=== PATIENT | female | born 1950 | race Caucasian/White ===

== ENCOUNTER 2017-12-12 06:17 | Day surgery (SDC) | payer MEDICARE, MEDICAID ==
[2017-12-08 12:49] LABS: BASOPHILS # (AUTO) 0.1 X10'3 (0-0.2); BASOPHILS % (AUTO) 0.6 % (0-1); EOSINOPHILS # (AUTO) 0.3 X10'3 (0-0.9); EOSINOPHILS % (AUTO) 2.6 % (0-6); LYMPHOCYTES # (AUTO) 2.3 X10'3 (1.1-4.8); LYMPHOCYTES % (AUTO) 21.1 % (21-51); MEAN CORPUSCULAR HEMOGLOBIN 29.5 PG (27.0-31.0); MEAN CORPUSCULAR HGB CONC 33.5 % (33.0-36.5); MEAN PLATELET VOLUME 8.5 FL (7.4-10.4); MONOCYTES # (AUTO) 0.9 X10'3 (0-0.9); MONOCYTES % (AUTO) 8.8 % (2-12); NEUTROPHILS # (AUTO) 7.2 X10'3 (1.8-7.7); NEUTROPHILS % (AUTO) 66.9 % (42-75); PRE OP HEMATOCRIT 43.1 % (35.0-45.0); PRE OP HEMOGLOBIN 14.4 g/dL (12.0-16.0); PRE OP PLATELET COUNT 232 X10'3 (140-440); RED CELL DISTRIBUTION WIDTH 14.6 % (11.5-14.5)
[2017-12-08 12:53] LABS: CLARITY,URINE Clear (Clear); COLOR,URINE Yellow (Yellow); GLUCOSE, URINE Negative (Neg); KETONES,URINE Negative (Neg); LEUKOCYTE ESTERASE ,URINE Trace (Neg); NITRITES, URINE Negative (Neg); OCCULT BLOOD,URINE Negative (Neg); PROTEIN,URINE Negative (Neg); UROBILINOGEN,URINE 0.2 E.U/dL (0.2-1.0)
[2017-12-08 13:07] LABS: UA COLLECTION TYPE NON-SPECIFIED
[2017-12-08 13:08] LABS: BACTERIA,URINE FEW /HPF (Neg); MUCUS STRANDS NONE SEEN /LPF (Neg); RBC,URINE 0-2 /HPF (0-2); SQUAMOUS EPITHELIAL CELL,UR FEW /LPF (FEW); WBC,URINE 0-4 /HPF (0-4)
[2017-12-08 13:11] LABS: ALBUMIN 4.1 G/DL (3.4-5.0); ALBUMIN/GLOBULIN RATIO 1.2 (1.1-1.5); ALKALINE PHOSPHATASE 96 IU/L (46-116); BLOOD UREA NITROGEN 29 MG/DL (7-18); BUN/CREATININE RATIO 48.3 (6.6-38.0); CALCIUM 9.2 MG/DL (8.5-10.1); CHLORIDE 104 MMOL/L (99-107); PRE OP ALT 27 U/L (30-65); PRE OP ANION GAP 8 (8-16); PRE OP AST 18 U/L (10-37); PRE OP BILIRUB, TOTAL 0.5 MG/DL (0.0-1.0); PRE OP GLUCOSE 78 MG/DL (70-104); PRE OP POTASSIUM 4.4 MMOL/L (3.4-5.1); PRE OP SODIUM 140 MMOL/L (135-145); TOTAL CARBON DIOXIDE 27.6 MMOL/L (24-32); TOTAL PROTEIN 7.5 G/DL (6.4-8.2); eGFR > 90 ML/MIN
[2017-12-12] VITALS (10 sets, daily range): BP systolic 161–193; BP diastolic 101–120
[~2017-12-12] VITALS: Ht 149.9 cm; Wt 53.1 kg
[~2017-12-12 06:17] MED LIST: ALBU8.5H8 IH; FLUT1BLS3 INH; HYDR-3686 PO; IBUP-1984 PO; LISI1TAB9 PO; MONT10TA24 PO; PRED5TAB PO; TIOT18CA3 INH; albuterol 2.5 MG/3 ML nebule NEB ONE; clindamycin 600mg/D5W 50ml 50 ML IV ONE; famotidine 20mg tablet PO ONE; ringers solution, lacted 1,000 ML IV SCH
[2017-12-12] MEDS ORDERED: LIDOcaine 1% 30ml vial 0 ML ONE (06:44)
[2017-12-12] MEDS ORDERED: BUPIVAcaine/PF 2.5 mg/ml (0.25%) 30ml vial ONE (06:44)
[2017-12-12] MEDS ORDERED: sevoflurane 250ml liquid IH ONE (08:20)
[2017-12-12] MEDS ORDERED: fentaNYL/PF 50MCG/1 ML 2ML syringe ONE (08:28)
[2017-12-12] MEDS ORDERED: midazolam 2 mg/2 ml injection ONE (08:29)
[2017-12-12] MEDS ORDERED: propofol inj 20 ML IV ONE (08:29)
[2017-12-12] MEDS ORDERED: LIDOcaine 2% (20mg/ml) 5ml vial ONE (08:29)
[2017-12-12] MEDS ORDERED: dexamethasone sod phosphate 4mg/ml inj. ONE (08:30)
[2017-12-12] MEDS ORDERED: ringers solution, lacted 1,000 ML IV SCH (09:04)
[2017-12-12] MEDS ORDERED: meperidine/PF 25mg/ml syringe IV PRN ×2 (09:05)
[2017-12-12] MEDS ORDERED: ondansetron/PF 4mg/2ml inj IV PRN (09:05)
[2017-12-12] MEDS ORDERED: morphine 2 MG/ML inj. syringe IV PRN ×2 (09:05)
[2017-12-12] MEDS ORDERED: proCHLORperazine 10 MG/2 ml inj IV PRN (09:05)
[2017-12-12] MEDS ORDERED: ketorolac trometh. 30mg/ml inj. ONE (09:22)
[2017-12-12] MEDS: meperidine/PF 25mg/ml syringe IV PRN ×2 (09:56→10:02)
[2017-12-12] MEDS: enalaprilat dihydrate 2.5mg/2ml vial IV PRN ×2 (10:13→10:31)
[2017-12-12] MEDS ORDERED: traMADol 50MG tablet PO ONE (10:35)
== END 2017-12-12 11:15 | disposition home or self-care (01) ==
LOC: PAS 06:17
PROVIDERS: ATTEND Surgery
DX: K43.2 Incisional hernia without obstruction or gangrene (principal); M19.90 Unspecified osteoarthritis, unspecified site; F32.9 Major depressive disorder, single episode, unspecified; J44.9 Chronic obstructive pulmonary disease, unspecified; I10 Essential (primary) hypertension; J45.909 Unspecified asthma, uncomplicated; Z96.612 Presence of left artificial shoulder joint; Z89.021 Acquired absence of right finger(s); Z88.5 Allergy status to narcotic agent; Z88.0 Allergy status to penicillin; Z88.6 Allergy status to analgesic agent; Z88.1 Allergy status to other antibiotic agents; Z88.8 Allergy status to other drugs, medicaments and biological substances; Z79.1 Long term (current) use of non-steroidal anti-inflammatories (NSAID); Z79.899 Other long term (current) drug therapy; Z87.891 Personal history of nicotine dependence
CPT/HCPCS: 36415; 49560; 49568; 71046; 80053; 81001; 85025; 87088; 93005; 94640; 94760; A6449; C1781; J1100; J1885; J2001; J2175; J2250; J2704; J3010; J3490; J7120; 88302; A7000

== ENCOUNTER 2018-02-24 05:07 | Inpatient (IN) | payer MEDICARE, MEDICAID ==
[~2018-02-24] VITALS: Ht 149.9 cm; Wt 59.0 kg
[2018-02-24] VITALS (16 sets, daily range): BP systolic 116–146; BP diastolic 73–93
[~2018-02-24 05:07] MED LIST changes: -albuterol 2.5 MG/3 ML nebule NEB ONE; -clindamycin 600mg/D5W 50ml 50 ML IV ONE; -famotidine 20mg tablet PO ONE; -ringers solution, lacted 1,000 ML IV SCH
[2018-02-24] MEDS ORDERED: normal saline 1000ml 1,000 ML IV ONE ×2 (05:09→06:55)
[2018-02-24] MEDS ORDERED: ondansetron/PF 4mg/2ml inj IV ONE (05:10)
[2018-02-24] MEDS ORDERED: albuterol 2.5 MG/3 ML nebule NEB ONE (05:10)
[2018-02-24] MEDS ORDERED: methylPREDNISolone sod succ 125mg/2ml vial IV ONE (05:15)
[2018-02-24 05:50] LABS: ABG BASE EXCESS 6.5 mmol/L (-2.0-3.0); ABG HCO3 31.1 mmol/L (22.0-26.0); ABG OXYGEN SATURATION 85.5 % (95-98); ABG PCO2 (T) 43.3 mmHg (32.0-45.0); ABG PH (T) 7.472 (7.350-7.450); ABG PO2 (T) 51.8 mmHg (83-108); FCOHb 1.1 % (0.5-1.5); FLOW 4 L/min; FMetHb 0.1 % (0.3-1.12); FO2Hb 84.5 % (94-100); PATIENT TEMPERATURE 36.6; TOTAL HEMOGLOBIN 15.2 G/dl (12.0-16.0)
[2018-02-24 06:04] LABS: BASOPHILS % (AUTO) 0.1 % (0-1); EOSINOPHILS % (AUTO) 0.2 % (0-6); HEMATOCRIT 44.9 % (35.0-45.0); HEMOGLOBIN 15.4 g/dl (12.0-16.0); LYMPHOCYTES # (AUTO) 0.7 X10'3 (1.1-4.8); LYMPHOCYTES % (AUTO) 8.5 % (21-51); MEAN CORPUSCULAR HEMOGLOBIN 29.3 PG (27.0-31.0); MEAN CORPUSCULAR HGB CONC 34.3 % (33.0-36.5); MEAN CORPUSCULAR VOLUME 85.6 FL (78-98); MEAN PLATELET VOLUME 8.3 FL (7.4-10.4); MONOCYTES # (AUTO) 0.1 X10'3 (0-0.9); MONOCYTES % (AUTO) 1.4 % (2-12); NEUTROPHILS # (AUTO) 7.4 X10'3 (1.8-7.7); NEUTROPHILS % (AUTO) 89.8 % (42-75); PLATELET COUNT 291 X10'3 (140-440); RED BLOOD COUNT 5.25 X10'6 (4.20-5.60); RED CELL DISTRIBUTION WIDTH 13.2 % (11.5-14.5); WHITE BLOOD COUNT 8.2 X10'3 (4.5-11.0)
[2018-02-24 06:22] LABS: INR 1.1 INR; PARTIAL THROMBOPLASTIN TIME 21 SECONDS (22-32); PROTHROMBIN TIME 11.2 SECONDS (9.0-12.0)
[2018-02-24] MEDS ORDERED: cefepime 1GM/NS ADD-VANTAGE 100 ML IV ONE (06:30)
[2018-02-24 06:37] LABS: ALANINE AMINOTRANSFERASE 18 U/L (12-78); ALBUMIN 3.6 G/DL (3.4-5.0); ALKALINE PHOSPHATASE 76 IU/L (46-116); ANION GAP 17 (8-16); ASPARTATE AMINO TRANSFERASE 20 U/L (10-37); BILIRUBIN,TOTAL 1.1 MG/DL (0.1-1.0); BLOOD UREA NITROGEN 76 MG/DL (7-18); BUN/CREATININE RATIO 23.8 (6.6-38.0); CHLORIDE 85 MMOL/L (99-107); GLUCOSE 168 MG/DL (70-104); LIPASE 204 U/L (73-393); MAGNESIUM 3.3 MG/DL (1.5-2.4); POTASSIUM 3.1 MMOL/L (3.5-5.1); SODIUM 134 MMOL/L (135-145); TOTAL CARBON DIOXIDE 32.5 MMOL/L (24-32); TOTAL PROTEIN 7.2 G/DL (6.4-8.2); eGFR 14 ML/MIN
[2018-02-24 06:44] LABS: CALCIUM 12.1 MG/DL (8.5-10.1)
[2018-02-24] MEDS ORDERED: cefepime inj. 1 GM in dextrose 5%-water 50ml 50 ML IV ONE (07:20)
[2018-02-24 07:34] LABS: PLATELET ESTIMATE NORMAL; TOTAL CELLS COUNTED 100; TOXIC VACUOLATION 1+
[2018-02-24] MEDS ORDERED: normal saline 1000ML IV soln IVB ONE (07:45)
[2018-02-24] MEDS ORDERED: metoclopramide 5 mg/ml inj IV PRN (09:10)
[2018-02-24] MEDS ORDERED: magnesium Cl slow-release 64mg tablet PO PRN (09:10)
[2018-02-24] MEDS ORDERED: magnesium 2GM in 50ml NS 50 ML IV PRN (09:10)
[2018-02-24] MEDS ORDERED: HYDROcodone/acetaminophen 5mg/325mg tablet PO PRN (09:10)
[2018-02-24] MEDS ORDERED: magnesium hydroxide 30ml (MOM) UD suspension PO PRN (09:10)
[2018-02-24] MEDS ORDERED: HYDROmorphone inj. 0.5 MG/0.5 ML DISP.SYRIN IV PRN ×2 (09:10)
[2018-02-24] MEDS ORDERED: potassium Cl 20 mEq SR tablet PO PRN ×2 (09:10)
[2018-02-24] MEDS ORDERED: acetaminophen 325mg tablet PO PRN (09:10)
[2018-02-24] MEDS ORDERED: potassium Cl 40MEQ/NS 500ml 500 ML IV PRN ×2 (09:10)
[2018-02-24] MEDS ORDERED: mag hydrox/Alum hydrox/simeth 30ml oral suspension PO PRN (09:10)
[2018-02-24] MEDS ORDERED: magnesium 4gm in 100ml NS 100 ML IV PRN (09:10)
[2018-02-24] MEDS ORDERED: cefepime inj. 1 GM in dextrose 5%-water 50ml 100 ML IV SCH (09:30)
[2018-02-24] MEDS: K and/or MAG REPLACEMENT MC SCH (09:44)
[2018-02-24 10:56] LABS: CLARITY,URINE CLEAR (Clear); COLOR,URINE YELLOW (Yellow); GLUCOSE, URINE NEGATIVE (Neg); KETONES,URINE TRACE mg/dl (Neg); LEUKOCYTE ESTERASE ,URINE NEGATIVE (Neg); NITRITES, URINE NEGATIVE (Neg); OCCULT BLOOD,URINE TRACE-INTACT (Neg); PROTEIN,URINE TRACE mg/dl (Neg); UROBILINOGEN,URINE 0.2 E.U/dL (0.2-1.0)
[2018-02-24 10:58] LABS: UA COLLECTION TYPE STRAIGHT CATH
[2018-02-24 11:04] LABS: BACTERIA,URINE FEW /HPF (Neg); COARSE GRANULAR CAST 0-3 /LPF (NEGATIVE); HYALINE CASTS 0-3 /LPF (NEGATIVE); MUCUS STRANDS FEW /LPF (Neg); RBC,URINE 0-2 /HPF (0-2); SQUAMOUS EPITHELIAL CELL,UR FEW /LPF (FEW); WBC,URINE 0-4 /HPF (0-4)
[2018-02-24 11:07] LABS: URINE AMPHETAMINE SCREEN NEGATIVE (Neg); URINE BARBITUATE SCREEN NEGATIVE (Neg); URINE BENZODIAZEPINES SCREEN NEGATIVE (Neg); URINE CANNABINOID SCREEN NEGATIVE (Neg); URINE COCAINE SCREEN NEGATIVE (Neg); URINE METHADONE SCREEN NEGATIVE (Neg); URINE OPIATE SCREEN NEGATIVE (Neg); URINE PHENCYCLIDINE SCREEN NEGATIVE (Neg)
[2018-02-24] MEDS ORDERED: ceFAZolin 1000mg inj ONE ×2 (13:43→14:42)
[2018-02-24] MEDS ORDERED: BUPIVAcaine/PF 2.5 mg/ml (0.25%) 30ml vial ONE (13:44)
[2018-02-24] MEDS ORDERED: desflurane 240ml liquid inh. IH ONE (13:50)
[2018-02-24] MEDS ORDERED: neostigmine methylsulfate 1 MG/ML 10ml vial ONE (13:50)
[2018-02-24] MEDS ORDERED: glycopyrrolate 0.2mg/ml inj ONE (13:50)
[2018-02-24] MEDS ORDERED: fentaNYL/PF 50MCG/1 ML 2ML syringe ONE ×2 (14:08→15:02)
[2018-02-24] MEDS ORDERED: midazolam 2 mg/2 ml injection ONE (14:10)
[2018-02-24] MEDS ORDERED: LIDOcaine 1%/PF (10mg/ml) 5ml vial ONE (14:42)
[2018-02-24] MEDS ORDERED: rocuronium 10mg/ml inj IV ONE (14:42)
[2018-02-24] MEDS ORDERED: ringers solution, lacted 1,000 ML IV SCH (15:04)
[2018-02-24] MEDS ORDERED: meperidine/PF 50mg/ml syringe IV PRN ×3 (15:05)
[2018-02-24] MEDS ORDERED: morphine 4 MG/ML inj SYRINge IV PRN ×2 (15:05)
[2018-02-24] MEDS ORDERED: ondansetron/PF 4mg/2ml inj IV PRN (15:05)
[2018-02-24] MEDS ORDERED: proCHLORperazine 10 MG/2 ml inj IV PRN (15:05)
[2018-02-24] MEDS ORDERED: morphine/NS 5 mg/ml CADD 50 ML IV SCH (15:40)
[2018-02-24] MEDS: ipratropium/albuterol 3ml nebule NEB PRN (16:04)
[2018-02-24] MEDS ORDERED: HYDROmorphone/NS 1 mg/ml CADD 50 ML IV SCH (16:39)
[2018-02-24] MEDS: normal saline 1000ml 1,000 ML IV SCH ×2 (17:31→19:10)
[2018-02-24] MEDS: pantoprazole 40 MG vial IV SCH (17:31)
[2018-02-24] MEDS: HYDROmorphone/NS 1 mg/ml CADD 50 ML IV SCH ×2 (21:00→23:00)
[2018-02-25] VITALS: BP 133/86
[2018-02-25] MEDS: HYDROmorphone/NS 1 mg/ml CADD 50 ML IV SCH ×12 (01:00→23:00)
[2018-02-25] MEDS: normal saline 1000ml 1,000 ML IV SCH ×3 (03:19→23:34)
[2018-02-25 04:37] VITALS: BP 120/77
[2018-02-25 05:45] LABS: BASOPHILS % (AUTO) 0 % (0-1); EOSINOPHILS % (AUTO) 0 % (0-6); HEMATOCRIT 31.7 % (35.0-45.0); HEMOGLOBIN 10.7 g/dl (12.0-16.0); LYMPHOCYTES # (AUTO) 0.3 X10'3 (1.1-4.8); LYMPHOCYTES % (AUTO) 1.9 % (21-51); MEAN CORPUSCULAR HEMOGLOBIN 29.3 PG (27.0-31.0); MEAN CORPUSCULAR HGB CONC 33.9 % (33.0-36.5); MEAN CORPUSCULAR VOLUME 86.7 FL (78-98); MEAN PLATELET VOLUME 9.4 FL (7.4-10.4); MONOCYTES # (AUTO) 0.8 X10'3 (0-0.9); NEUTROPHILS % (AUTO) 93.1 % (42-75); PLATELET COUNT 215 X10'3 (140-440); RED BLOOD COUNT 3.65 X10'6 (4.20-5.60); RED CELL DISTRIBUTION WIDTH 13.5 % (11.5-14.5)
[2018-02-25 06:09] LABS: ALANINE AMINOTRANSFERASE 15 U/L (12-78); ALBUMIN 2.4 G/DL (3.4-5.0); ALBUMIN/GLOBULIN RATIO 0.9 (1.1-1.5); ALKALINE PHOSPHATASE 57 IU/L (46-116); ANION GAP 13 (8-16); ASPARTATE AMINO TRANSFERASE 17 U/L (10-37); BILIRUBIN,TOTAL 0.4 MG/DL (0.1-1.0); BLOOD UREA NITROGEN 59 MG/DL (7-18); BUN/CREATININE RATIO 40.4 (6.6-38.0); CALCIUM 8.7 MG/DL (8.5-10.1); CHLORIDE 106 MMOL/L (99-107); CREATININE 1.46 MG/DL (0.40-0.90); GLUCOSE 104 MG/DL (70-104); MAGNESIUM 2.6 MG/DL (1.5-2.4); POTASSIUM 3.5 MMOL/L (3.5-5.1); SODIUM 142 MMOL/L (135-145); TOTAL CARBON DIOXIDE 22.7 MMOL/L (24-32); TOTAL PROTEIN 5.2 G/DL (6.4-8.2); eGFR 35 ML/MIN
[2018-02-25 07:50] LABS: TOTAL CELLS COUNTED 100
[2018-02-25 07:51] LABS: PLATELET ESTIMATE NORMAL
[2018-02-25] MEDS ORDERED: cefepime 1GM/100ML NS ADD-VANTAGE BAG IV SCH (08:00)
[2018-02-25] MEDS: pantoprazole 40 MG vial IV SCH ×2 (09:37→10:22)
[2018-02-25] MEDS: cefepime inj. 1 GM in dextrose 5%-water 50ml 50 ML IV SCH (10:26)
[2018-02-25 11:00] VITALS: BP 133/79
[2018-02-25] MEDS: ipratropium/albuterol 3ml nebule NEB PRN (19:24)
[2018-02-25 19:30] VITALS: BP 160/92
[2018-02-26] VITALS: BP 137/84
[2018-02-26] MEDS: HYDROmorphone/NS 1 mg/ml CADD 50 ML IV SCH ×5 (01:00→09:00)
[2018-02-26 04:00] VITALS: BP 152/82
[2018-02-26 05:15] LABS: BASOPHILS % (AUTO) 0.1 % (0-1); EOSINOPHILS % (AUTO) 0.1 % (0-6); HEMATOCRIT 34.4 % (35.0-45.0); HEMOGLOBIN 11.4 g/dl (12.0-16.0); LYMPHOCYTES # (AUTO) 0.7 X10'3 (1.1-4.8); LYMPHOCYTES % (AUTO) 4.5 % (21-51); MEAN CORPUSCULAR HGB CONC 33.1 % (33.0-36.5); MEAN CORPUSCULAR VOLUME 87.7 FL (78-98); MEAN PLATELET VOLUME 9.3 FL (7.4-10.4); MONOCYTES # (AUTO) 0.6 X10'3 (0-0.9); NEUTROPHILS # (AUTO) 14.1 X10'3 (1.8-7.7); NEUTROPHILS % (AUTO) 91.3 % (42-75); PLATELET COUNT 198 X10'3 (140-440); RED BLOOD COUNT 3.93 X10'6 (4.20-5.60); RED CELL DISTRIBUTION WIDTH 13.7 % (11.5-14.5); WHITE BLOOD COUNT 15.4 X10'3 (4.5-11.0)
[2018-02-26 05:58] LABS: ALANINE AMINOTRANSFERASE 16 U/L (12-78); ALBUMIN 2.4 G/DL (3.4-5.0); ALBUMIN/GLOBULIN RATIO 0.8 (1.1-1.5); ALKALINE PHOSPHATASE 65 IU/L (46-116); ANION GAP 12 (8-16); ASPARTATE AMINO TRANSFERASE 21 U/L (10-37); BILIRUBIN,TOTAL 0.4 MG/DL (0.1-1.0); BLOOD UREA NITROGEN 46 MG/DL (7-18); BUN/CREATININE RATIO 54.1 (6.6-38.0); CALCIUM 8.5 MG/DL (8.5-10.1); CHLORIDE 107 MMOL/L (99-107); CREATININE 0.85 MG/DL (0.40-0.90); GLUCOSE 86 MG/DL (70-104); MAGNESIUM 2.6 MG/DL (1.5-2.4); POTASSIUM 3.7 MMOL/L (3.5-5.1); SODIUM 140 MMOL/L (135-145); TOTAL CARBON DIOXIDE 21.1 MMOL/L (24-32); TOTAL PROTEIN 5.4 G/DL (6.4-8.2); eGFR 66 ML/MIN
[2018-02-26 07:00] VITALS: BP 155/97
[2018-02-26] MEDS: K and/or MAG REPLACEMENT MC SCH (08:00)
[2018-02-26] MEDS: pantoprazole 40 MG vial IV SCH (09:39)
[2018-02-26 09:58] LABS: TOTAL CELLS COUNTED 100
[2018-02-26 09:59] LABS: PLATELET ESTIMATE NORMAL
[2018-02-26 10:00] LABS: BURR CELLS 2+
[2018-02-26] MEDS: cefepime inj. 1 GM in dextrose 5%-water 50ml 50 ML IV SCH (10:27)
[2018-02-26] MEDS: normal saline 1000ml 1,000 ML IV SCH (10:37)
[2018-02-26 11:00] VITALS: BP 143/89
[2018-02-26] MEDS: ipratropium/albuterol 3ml nebule NEB PRN ×2 (14:18→20:54)
[2018-02-26] MEDS: metroNIDAZOLE-Flagyl 500mg/NS 100 ML IV SCH (16:00)
[2018-02-26] MEDS ORDERED: HYDROmorphone 2mg tablet PO PRN (17:15)
[2018-02-26] MEDS ORDERED: PRED5TAB PO (18:03)
[2018-02-26] MEDS ORDERED: LISI10TA4 PO (18:06)
[2018-02-26 19:30] VITALS: BP 176/106
[2018-02-27] VITALS: BP 158/102
[2018-02-27] MEDS: metroNIDAZOLE-Flagyl 500mg/NS 100 ML IV SCH ×2 (00:17→07:39)
[2018-02-27] MEDS: ipratropium/albuterol 3ml nebule NEB PRN ×2 (04:08→07:58)
[2018-02-27 05:15] LABS: BASOPHILS % (AUTO) 0.1 % (0-1); EOSINOPHILS # (AUTO) 0.1 X10'3 (0-0.9); EOSINOPHILS % (AUTO) 0.6 % (0-6); HEMATOCRIT 32.5 % (35.0-45.0); LYMPHOCYTES # (AUTO) 1.1 X10'3 (1.1-4.8); LYMPHOCYTES % (AUTO) 7.4 % (21-51); MEAN CORPUSCULAR HEMOGLOBIN 29.2 PG (27.0-31.0); MEAN CORPUSCULAR HGB CONC 33.8 % (33.0-36.5); MEAN CORPUSCULAR VOLUME 86.3 FL (78-98); MEAN PLATELET VOLUME 9.3 FL (7.4-10.4); MONOCYTES # (AUTO) 0.4 X10'3 (0-0.9); MONOCYTES % (AUTO) 2.7 % (2-12); NEUTROPHILS # (AUTO) 13.7 X10'3 (1.8-7.7); NEUTROPHILS % (AUTO) 89.2 % (42-75); PLATELET COUNT 238 X10'3 (140-440); RED BLOOD COUNT 3.77 X10'6 (4.20-5.60); RED CELL DISTRIBUTION WIDTH 13.3 % (11.5-14.5); WHITE BLOOD COUNT 15.3 X10'3 (4.5-11.0)
[2018-02-27 05:26] LABS: ALANINE AMINOTRANSFERASE 16 U/L (12-78); ALBUMIN 2.1 G/DL (3.4-5.0); ALBUMIN/GLOBULIN RATIO 0.7 (1.1-1.5); ALKALINE PHOSPHATASE 70 IU/L (46-116); ANION GAP 8 (8-16); ASPARTATE AMINO TRANSFERASE 19 U/L (10-37); BILIRUBIN,TOTAL 0.6 MG/DL (0.1-1.0); BLOOD UREA NITROGEN 18 MG/DL (7-18); BUN/CREATININE RATIO 29.5 (6.6-38.0); CALCIUM 7.6 MG/DL (8.5-10.1); CHLORIDE 103 MMOL/L (99-107); CREATININE 0.61 MG/DL (0.40-0.90); GLUCOSE 100 MG/DL (70-104); MAGNESIUM 1.7 MG/DL (1.5-2.4); SODIUM 137 MMOL/L (135-145); TOTAL CARBON DIOXIDE 26.1 MMOL/L (24-32); eGFR > 90 ML/MIN
[2018-02-27 07:30] VITALS: BP 160/99
[2018-02-27] MEDS: pantoprazole 40 MG vial IV SCH (07:38)
[2018-02-27] MEDS: K and/or MAG REPLACEMENT MC SCH (08:00)
[2018-02-27] MEDS: cefepime inj. 1 GM in dextrose 5%-water 50ml 50 ML IV SCH (10:32)
[2018-02-27 12:00] VITALS: BP 136/100
[2018-02-27] MEDS: nystatin 500,000 unit/5ML UD oral suspension PO SCH ×2 (13:23→21:03)
[2018-02-27] MEDS: HYDROmorphone 2mg tablet PO PRN ×2 (19:10→23:14)
[2018-02-27 20:00] VITALS: BP 154/102
[2018-02-27] MEDS: lactobacillus rhamnosus 10,000 MMU CELLS/CAPSULE PO SCH (21:03)
[2018-02-28] VITALS: BP 134/96
[2018-02-28] MEDS ORDERED: potassium Cl 40MEQ/NS 500ml 500 ML IV PRN ×4 (04:25→10:35)
[2018-02-28] MEDS ORDERED: potassium Cl 20 mEq SR tablet PO PRN ×2 (04:25→10:35)
[2018-02-28] MEDS: ondansetron/PF 4mg/2ml inj IV PRN ×2 (04:36→19:33)
[2018-02-28] MEDS: HYDROmorphone 2mg tablet PO PRN ×2 (04:37→08:56)
[2018-02-28] MEDS: potassium Cl 20 mEq SR tablet PO PRN ×3 (04:37→13:36)
[2018-02-28 05:02] LABS: BASOPHILS # (AUTO) 0.1 X10'3 (0-0.2); BASOPHILS % (AUTO) 0.7 % (0-1); EOSINOPHILS # (AUTO) 0.1 X10'3 (0-0.9); EOSINOPHILS % (AUTO) 0.5 % (0-6); HEMATOCRIT 35.8 % (35.0-45.0); LYMPHOCYTES # (AUTO) 1.2 X10'3 (1.1-4.8); LYMPHOCYTES % (AUTO) 7.5 % (21-51); MEAN CORPUSCULAR HGB CONC 33.4 % (33.0-36.5); MEAN CORPUSCULAR VOLUME 86.8 FL (78-98); MEAN PLATELET VOLUME 9.2 FL (7.4-10.4); MONOCYTES # (AUTO) 1.2 X10'3 (0-0.9); MONOCYTES % (AUTO) 7.7 % (2-12); NEUTROPHILS # (AUTO) 13.1 X10'3 (1.8-7.7); NEUTROPHILS % (AUTO) 83.6 % (42-75); PLATELET COUNT 261 X10'3 (140-440); RED BLOOD COUNT 4.12 X10'6 (4.20-5.60); RED CELL DISTRIBUTION WIDTH 13.2 % (11.5-14.5); WHITE BLOOD COUNT 15.7 X10'3 (4.5-11.0)
[2018-02-28 05:15] LABS: ALANINE AMINOTRANSFERASE 17 U/L (12-78); ALBUMIN 2.2 G/DL (3.4-5.0); ALBUMIN/GLOBULIN RATIO 0.7 (1.1-1.5); ALKALINE PHOSPHATASE 99 IU/L (46-116); ANION GAP 11 (8-16); ASPARTATE AMINO TRANSFERASE 18 U/L (10-37); BILIRUBIN,TOTAL 0.6 MG/DL (0.1-1.0); BLOOD UREA NITROGEN 11 MG/DL (7-18); BUN/CREATININE RATIO 18.3 (6.6-38.0); CALCIUM 7.8 MG/DL (8.5-10.1); CHLORIDE 101 MMOL/L (99-107); GLUCOSE 120 MG/DL (70-104); MAGNESIUM 1.3 MG/DL (1.5-2.4); SODIUM 139 MMOL/L (135-145); TOTAL CARBON DIOXIDE 26.8 MMOL/L (24-32); TOTAL PROTEIN 5.3 G/DL (6.4-8.2); eGFR > 90 ML/MIN
[2018-02-28 07:00] VITALS: BP 149/94
[2018-02-28] MEDS: K and/or MAG REPLACEMENT MC SCH ×2 (08:00)
[2018-02-28] MEDS: nystatin 500,000 unit/5ML UD oral suspension PO SCH ×3 (08:47→22:25)
[2018-02-28] MEDS: lactobacillus rhamnosus 10,000 MMU CELLS/CAPSULE PO SCH ×2 (08:47→20:00)
[2018-02-28] MEDS ORDERED: magnesium 2GM in 50ml NS 50 ML IV PRN (10:35)
[2018-02-28] MEDS ORDERED: magnesium 4gm in 100ml NS 100 ML IV PRN (10:35)
[2018-02-28 11:00] VITALS: BP 128/89
[2018-02-28] MEDS: magnesium Cl slow-release 64mg tablet PO PRN (11:13)
[2018-02-28] MEDS ORDERED: TRAM1TAB36 PO (12:00)
[2018-02-28 14:36] VITALS: BP 140/90
[2018-02-28 17:08] VITALS: BP 133/82
[2018-02-28] MEDS: ipratropium/albuterol 3ml nebule NEB PRN (17:23)
[2018-02-28] MEDS: cefepime 2g/NS 100ml ADVANTAGE 100 ML IV SCH (19:34)
[2018-02-28 20:00] VITALS: BP 150/101
[2018-02-28] MEDS ORDERED: temazepam 15mg capsule PO PRN (22:10)
[2018-03-01] VITALS: BP 139/69
[2018-03-01] MEDS: HYDROmorphone 2mg tablet PO PRN ×2 (01:35→11:05)
[2018-03-01] MEDS: potassium Cl 20 mEq SR tablet PO PRN (01:36)
[2018-03-01] MEDS: magnesium Cl slow-release 64mg tablet PO PRN ×2 (01:36→07:18)
[2018-03-01 05:30] LABS: BASOPHILS # (AUTO) 0.1 X10'3 (0-0.2); BASOPHILS % (AUTO) 0.4 % (0-1); EOSINOPHILS # (AUTO) 0.5 X10'3 (0-0.9); EOSINOPHILS % (AUTO) 3.9 % (0-6); HEMATOCRIT 32.2 % (35.0-45.0); HEMOGLOBIN 10.8 g/dl (12.0-16.0); LYMPHOCYTES # (AUTO) 1.3 X10'3 (1.1-4.8); LYMPHOCYTES % (AUTO) 10.3 % (21-51); MEAN CORPUSCULAR HEMOGLOBIN 28.8 PG (27.0-31.0); MEAN CORPUSCULAR HGB CONC 33.4 % (33.0-36.5); MEAN CORPUSCULAR VOLUME 86.2 FL (78-98); MEAN PLATELET VOLUME 9.3 FL (7.4-10.4); MONOCYTES # (AUTO) 1.4 X10'3 (0-0.9); MONOCYTES % (AUTO) 10.9 % (2-12); NEUTROPHILS # (AUTO) 9.4 X10'3 (1.8-7.7); NEUTROPHILS % (AUTO) 74.5 % (42-75); PLATELET COUNT 261 X10'3 (140-440); RED BLOOD COUNT 3.74 X10'6 (4.20-5.60); RED CELL DISTRIBUTION WIDTH 13.5 % (11.5-14.5); WHITE BLOOD COUNT 12.6 X10'3 (4.5-11.0)
[2018-03-01 05:40] LABS: ALANINE AMINOTRANSFERASE 18 U/L (12-78); ALBUMIN/GLOBULIN RATIO 0.7 (1.1-1.5); ALKALINE PHOSPHATASE 54 IU/L (46-116); ANION GAP 5 (8-16); ASPARTATE AMINO TRANSFERASE 16 U/L (10-37); BILIRUBIN,TOTAL 0.3 MG/DL (0.1-1.0); BLOOD UREA NITROGEN 12 MG/DL (7-18); BUN/CREATININE RATIO 21.4 (6.6-38.0); CALCIUM 7.7 MG/DL (8.5-10.1); CHLORIDE 107 MMOL/L (99-107); CREATININE 0.56 MG/DL (0.40-0.90); GLUCOSE 106 MG/DL (70-104); MAGNESIUM 1.2 MG/DL (1.5-2.4); POTASSIUM 5.3 MMOL/L (3.5-5.1); SODIUM 139 MMOL/L (135-145); TOTAL CARBON DIOXIDE 26.7 MMOL/L (24-32); eGFR > 90 ML/MIN
[2018-03-01] MEDS: K and/or MAG REPLACEMENT MC SCH (07:10)
[2018-03-01] MEDS: cefepime 2g/NS 100ml ADVANTAGE 100 ML IV SCH (07:19)
[2018-03-01] MEDS: lactobacillus rhamnosus 10,000 MMU CELLS/CAPSULE PO SCH (07:19)
[2018-03-01] MEDS: nystatin 500,000 unit/5ML UD oral suspension PO SCH ×2 (07:19→13:00)
[2018-03-01 08:45] VITALS: BP 161/111
[2018-03-01] MEDS ORDERED: LEVO500T2 PO (09:53)
[2018-03-01] MEDS ORDERED: HCTZ25T PO (09:55)
[2018-03-01] MEDS ORDERED: HYDROchlorothiazide 12.5mg capsule PO SCH (11:00)
[2018-03-01 12:25] VITALS: BP 169/113
[2018-03-01 14:29] VITALS: BP 164/98
[2018-03-01] MEDS ORDERED: LISI10TA4 PO (14:45)
[2018-03-02] MEDS ORDERED: HYDROchlorothiazide 12.5mg capsule PO SCH (08:00)
== END 2018-03-01 15:13 | disposition home health service (06) | DRG 853 ==
LOC: ER 05:07 → ED HOLD 09:10 → SUR 3N 17:23 → CANBEDREQ 02-26 19:50
PROVIDERS: ADMIT Family Medicine; ATTEND Internal Medicine
PROC: 0D9670Z Drainage of Stomach with Drainage Device, Via Natural or Artificial Opening (ICD-10-PCS; 2018-02-24)
PROC: 0YQ70ZZ Repair Right Femoral Region, Open Approach (ICD-10-PCS; principal; 2018-02-24 13:50)
DX: A41.9 Sepsis, unspecified organism (principal); G93.40 Encephalopathy, unspecified; N17.0 Acute kidney failure with tubular necrosis; J18.9 Pneumonia, unspecified organism; K41.30 Unilateral femoral hernia, with obstruction, without gangrene, not specified as recurrent; E87.1 Hypo-osmolality and hyponatremia; J44.0 Chronic obstructive pulmonary disease with (acute) lower respiratory infection; E87.5 Hyperkalemia; D64.9 Anemia, unspecified; R19.7 Diarrhea, unspecified; E83.41 Hypermagnesemia; E83.42 Hypomagnesemia; E87.6 Hypokalemia; E83.52 Hypercalcemia; I10 Essential (primary) hypertension; R74.0 Nonspecific elevation of levels of transaminase and lactic acid dehydrogenase [LDH]; Z96.612 Presence of left artificial shoulder joint; Z79.52 Long term (current) use of systemic steroids; Z88.5 Allergy status to narcotic agent; Z88.0 Allergy status to penicillin; Z88.2 Allergy status to sulfonamides; Z88.8 Allergy status to other drugs, medicaments and biological substances; Z87.891 Personal history of nicotine dependence
CPT/HCPCS: 36415; 36600; 71045; 74018; 74176; 80053; 80305; 81001; 82803; 82948; 83605; 83690; 83735; 83880; 84132; 84145; 84484; 85018; 85025; 85610; 85730; 86885; 86900; 86901; 87040; 87070; 88302; 93005; 94640; 94760; 96365; 96375; 99291; A6449; A7000; C1781; C9113; J0690; J0692; J1170; J2001; J2250; J2405; J2710; J2930; J3010; J3480; J3490; J7030; J7060; J7120